=== PATIENT | female | born 1955 | race Caucasian/White ===

== ENCOUNTER 2020-07-03 18:43 | Emergency (ER) | payer MEDICARE, MEDICAID, SELFPAY ==
[2020-07-03 18:49] VITALS: BP 126/66; PULSE 74; RESP 16; TEMP 36.9; O2SAT 100; BMI 46.6
[2020-07-03] MEDS: 0.9 % Sodium Chloride 1,000 ML 999 ML IVCONT (20:44)
[2020-07-03 20:48] LABS: MANUAL DIFF FLAG NO
[2020-07-03 20:49] LABS: Basophils Percent Auto 0.4 % (0-2); Eosinophils Absolute Auto 0.4 X10*3/uL (0.0-0.4); Eosinophils Percent Auto 3.9 % (0-4); Hematocrit 32.1 % (37-47); Hemoglobin 10.2 g/dl (12.0-16.0); Lymphocytes Percent Auto 10.9 % (20-40); Mean Corpuscular HGB Conc 31.8 g/dl (31.0-35.0); Mean Corpuscular Hemoglobin 28.9 pg (27.0-33.0); Mean Corpuscular Volume 90.9 fL (80-98); Mean Platelet Volume 9.9 fL (9.4-12.3); Monocytes Percent Auto 10.5 % (2-11); Neutrophils Percent Auto 73.3 % (45-73); Platelet Count 297 X10*3/uL (160-400); Red Blood Count 3.53 X10*6/uL (4.20-5.50); White Blood Count 9.5 X10*3/uL (4.8-10.8)
[2020-07-03 21:32] LABS: Alanine Aminotransferase 11 U/L (0-31); Albumin Level 3.6 g/dL (3.5-5.0); Alkaline Phosphatase 115 U/L (39-117); Anion Gap 18 (12-20); Aspartate Amino Transferase 13 U/L (5-31); Bilirubin Total 0.3 mg/dL (0.0-1.0); Calcium 9.5 mg/dL (8.4-10.2); Carbon Dioxide 15 mmol/L (22-29); Chloride 102 mmol/L (96-108); Creatinine Clr Calc Pharmacy 13.8; Estimated Glomerular Filt Rate 9; Glucose Random 128 mg/dL (60-115); Potassium 5.3 mmol/l (3.3-5.1); Sodium 130 mmol/L (135-145); Total Protein 8.4 g/dL (6.5-8.0)
[2020-07-03 23:27] VITALS: BP 129/65; PULSE 91; RESP 23; O2SAT 98
--- NOTE | 2020-07-03 23:28 | ED.RECABL ---
HPI - Recheck/Abnormal Lab/Rx General Chief Complaint: Recheck/Abnormal Lab/Rx Stated Complaint: elevated kidney functions Time Seen by Provider: 07/03/20 19:09 Source: patient Mode of arrival: EMS Limitations: no limitations History of Present Illness HPI narrative: patient with stage IV renal disease came from [facility] for elevated BUN of 106 and creatinine of 5.08 her usual creatinine is 4.8 patient asymptomatic as such. Patient denies any shortness of breath chest pain body aches no leg swelling Related Data Allergies Allergy/AdvReac Type Severity Reaction Status Date / Time latex [LATEX] Allergy Severe HIVES, Unverified 06/14/20 14:36 RASH, NAUSEA, VOMITING morphine [MORPHINE] Allergy Severe CONVULSIONS Unverified 06/14/20 14:36 acetaminophen [Percocet] Allergy Unknown Verified 05/04/20 00:00 Benadryl Allergy Unknown Unverified 05/04/20 00:00 chlorpromazine Allergy Unknown UNKNOWN Unverified 06/14/20 14:36 [CHLORPROMAZINE] Clindamycin Phosphate Allergy Unknown Unverified 04/30/20 00:00 codeine [CODEINE] Allergy Unknown UNKNOWN Unverified 06/14/20 14:36 diphenhydramine Allergy Unknown UNKNOWN Unverified 06/14/20 14:36 haloperidol [From HALDOL] Allergy Unknown UNNKNOWN Unverified 06/14/20 14:36 lidocaine [LIDOCAINE] Allergy Unknown UNKNOWN, Unverified 06/14/20 14:36 patient states, patient states lorazepam [From ATIVAN] Allergy Unknown UNKNOWN Unverified 06/14/20 14:36 nitroglycerin [NITROGLYCERIN] Allergy Unknown UNKNOWN Unverified 06/14/20 14:36 penicillin V Allergy Unknown Unverified 05/04/20 00:00 Penicillins [PENICILLINS] Allergy Unknown UNKNOWN Unverified 06/14/20 14:36 Sulfa (Sulfonamide Allergy Unknown UNKNOWN Unverified 06/14/20 14:36 Antibiotics) [SULFA (SULFONAMIDE ANTIBIOTICS)] tetracycline Allergy Unknown Unverified 05/04/20 00:00 Tetracyclines [TETRACYCLINES] Allergy Unknown UNKNOWN Unverified 06/14/20 14:36 trazodone [TRAZODONE] Allergy Unknown UNKNOWN Unverified 06/14/20 14:36 trimethoprim [TRIMETHOPRIM] Allergy Unknown UNKNOWN Unverified 06/14/20 14:36 stein AdvReac Severe SEVERE Unverified 06/14/20 14:36 NAUSEA ketorolac [KETOROLAC] AdvReac Severe stage iv Unverified 06/14/20 14:36 kidney failure oxycodone [From PERCOCET] AdvReac Intermediate SEVERE Unverified 06/14/20 14:36 NAUSEA AND VOMITING radish [RADISHES] AdvReac Intermediate NAUSEA & Unverified 06/14/20 14:36 VOMITING mustard [MUSTARD*] AdvReac Mild NAUSEA Unverified 06/14/20 14:36 adhesive AdvReac Unknown RASH Unverified 06/14/20 14:36 PLASTIC Allergy Intermediate RASH Uncoded 06/14/20 14:36 beets, cherries, radishes Allergy Unknown Uncoded 05/04/20 00:00 black pepper Allergy Unknown Uncoded 05/04/20 00:00 cats Allergy Unknown Uncoded 05/04/20 00:00 BEANS. BAKED AdvReac Severe SEVERE Uncoded 06/14/20 14:36 DIARRHEA Review of Systems Review of Systems: REVIEW OF SYSTEMS: Pertinent positives and negatives are stated above in the history. GEN: no fevers, chills, fatigue HEENT: no nasal congestion, sore throat, ear pain NEURO: no headache, dizziness, focal weakness PULM: no cough, shortness of breath CV: no chest pain, palpitations, LE edema ABD: no abdominal pain, nausea, vomiting, diarrhea : no dysuria, urgency, frequency SKIN: no rash ROS otherwise negative x 10 PMFSH Past Medical History Medical History Bipolar 1 disorder CKD (chronic kidney disease) COPD (chronic obstructive pulmonary disease) Diabetes Epilepsy GERD (gastroesophageal reflux disease) HTN (hypertension) Hypothyroid MDD (major depressive disorder) Rheumatoid arthritis Social History Social History Alcohol intake: never Smoking Status: Former smoker Use of substances other than those prescribed or required for medical reasons: No Advance Directives: No Advance Directives Information Provided: Yes Physical Exam Vital Signs and I&O and Narrative: Vital Signs and I&O: Vital Signs Temp 98.5 F 07/03/20 18:49 Pulse 91 07/03/20 23:27 Resp 23 H 07/03/20 23:27 BP 129/65 07/03/20 23:27 Pulse Ox 98 07/03/20 23:27 Intake & Output 07/03/20 07/03/20 07/04/20 06:59 18:59 06:59 Intake Total 1000 / 1000 Balance 1000 / 1000 Weight 115.747 kg Intake: Intake, IV Amoun t 1000 / 1000 0.9 % Sodium C hloride 1,000 ml 1000 / 1000 @ 999 mls/hr I VCONT .Q1H1M JONATHAN Rx#:[id number] Body Mass Index 46.6 VITAL SIGNS: Reviewed. GENERAL: Well developed, well nourished, in no acute distress. HEAD: Normocephalic/atraumatic, Posterior oropharynx was without edema, erythema or exudate. EYES: PERRLA, EOMI intact without pain, no nystagmus/pallor/icterus noted EARS: Ext canals without abnormality, TMs non-bulging and non-erythematous NOSE: Nares patent bilateral OROPHARYNX: no oral lesions noted, posterior pharynx clear and non-erythematous without noted tonsillar enlargement/erythema/exudates NECK: Supple, no adenopathy LUNGS: Normal breath sounds. No adventitious sounds or accessory muscle use. CARDIOVASCULAR: Regular rate and rhythm without noted murmurs, no JVD or lower extremity edema. ABDOMEN: Soft, non-tender, non-distended with bowel sounds. No rigidity. No guarding. No palpable masses or hernias noted MUSCULOSKELETAL: No tenderness, deformities, or effusions noted on gross inspection. EXTREMITIES: No cyanosis, clubbing or edema. SKIN: Inspection of the skin reveals no rashes, ulcerations, jaundice, pallor, or petechiae NEUROLOGIC: Alert and oriented x 3. Strength and sensation to light touch were grossly intact x 4. Course Course Course Narrative: patient has CKD stage 4 elevated BUN and creatinine with no active bleeding repeat labs after 1 L of normal saline showed improvement in the creatinine to 4.8 with BUN of 102 patient is symptomatic as such also patient received Kayexalate 30 g for slightly elevated potassium of 5.3. Patient advised to follow with intellectual property legal assistant MDM - Recheck/Abnormal Lab/Rx Lab Data Result diagrams: 07/03/20 20:43 07/03/20 20:43 Labs: Lab Results 07/03/20 07/03/20 Range/Units 20:43 20:43 WBC 9.5 (4.8-10.8) X10*3/uL RBC 3.53 L (4.20-5.50) X10*6/uL Hgb 10.2 L (12.0-16.0) g/dl Hct 32.1 L (37-47) % MCV 90.9 (80-98) fL MCH 28.9 (27.0-33.0) pg MCHC 31.8 (31.0-35.0) g/dl RDW 13.0 (11.0-16.0) % Plt Count 297 (160-400) X10*3/uL MPV 9.9 (9.4-12.3) fL Immature Gran % (Auto) 1.0 H (0.0-0.4) % Neut % (Auto) 73.3 H (45-73) % Lymph % (Auto) 10.9 L (20-40) % [place] % (Auto) 10.5 (2-11) % Eos % (Auto) 3.9 (0-4) % Baso % (Auto) 0.4 (0-2) % Neut # (Auto) 7.0 (2.0-8.3) X10*3/uL Lymph # (Auto) 1.0 L (1.2-4.9) X10*3/uL [place] # (Auto) 1.0 (0.1-1.2) X10*3/uL Eos # (Auto) 0.4 (0.0-0.4) X10*3/uL Baso # (Auto) 0.0 (0.0-0.2) X10*3/uL Abs Immat Gran (auto) 0.10 H (0.00-0.03) X10*3/uL Absolute Nucleated RBC 0.000 (0.0-0.012) X10*3/uL Nucleated RBC % (auto) 0.0 (0.0-0.2) /100WBC Sodium 130 L (135-145) mmol/L Potassium 5.3 H (3.3-5.1) mmol/l Chloride 102 (96-108) mmol/L Carbon Dioxide 15 L (22-29) mmol/L Anion Gap 18 (12-20) BUN 102 H* (9-16) mg/dL Creatinine 4.82 H* (0.5-1.4) mg/dL Estim Creat Clear Calc 13.8 Estimated GFR 9 Random Glucose 128 H (60-115) mg/dL Calcium 9.5 (8.4-10.2) mg/dL Total Bilirubin 0.3 (0.0-1.0) mg/dL AST 13 (5-31) U/L ALT 11 (0-31) U/L Alkaline Phosphatase 115 (39-117) U/L Total Protein 8.4 H (6.5-8.0) g/dL Albumin 3.6 (3.5-5.0) g/dL Discharge Plan Discharge Clinical Impression: Chronic renal disease, stage 4, severely decreased glomerular filtration rate (GFR) between 15-29 mL/min/1.73 square meter Patient Disposition: Xfer [facility] Instructions: Chronic Kidney Disease (ED) Additional Instructions: follow-up with intellectual property legal assistant, drink plenty of fluids Referrals: Adelfo Aguilar MD [Physician] - 1 week Interventions: ED Discharge Assessment Last Done: 07/04/20 00:01
[2020-07-04] MEDS: Sodium Polystyrene Sulfon/Sorb 15 GM/60 ML ORAL.SUSP 30 GM PO (00:04)
[2020-09-01 13:00] LABS: Blood Urea Nitrogen 102 mg/dL (9-16)
== END 2020-07-04 00:22 ==
PROVIDERS: Emergency Provider Internal Medicine
DX: I12.9 Hypertensive chronic kidney disease with stage 1 through stage 4 chronic kidney disease, or unspecified chronic kidney disease (principal); E11.22 Type 2 diabetes mellitus with diabetic chronic kidney disease; N18.4 Chronic kidney disease, stage 4 (severe); R79.89 Other specified abnormal findings of blood chemistry; Z79.4 Long term (current) use of insulin; Z79.899 Other long term (current) drug therapy
CPT/HCPCS: 36415; 80053; 85025; 96360; 99284